=== PATIENT | male | born 1990 | race Caucasian/White ===

== ENCOUNTER 2017-10-11 19:16 | Emergency (ER) | payer SELFPAY ==
[~2017-10-11] VITALS: Ht 175.3 cm; Wt 99.8 kg
[2017-10-11 19:17] VITALS: Ht 175.3 cm; Wt 99.8 kg
[2017-10-11 21:17] VITALS: BP 128/53
== END 2017-10-11 21:17 | disposition other institution (70) ==
LOC: ED 19:16
DX: M54.5 Low back pain (principal); S00.83XA Contusion of other part of head, initial encounter; Y35.891A Legal intervention involving other specified means, law enforcement official injured, initial encounter; Y93.89 Activity, other specified; Y92.810 Car as the place of occurrence of the external cause; Y99.8 Other external cause status

== ENCOUNTER 2017-10-11 19:16 | Emergency (ER) | payer OTHER | END 2017-10-11 21:17 | disposition other institution (70) | LOC: ED 19:16 | DX: Z02.89 Encounter for other administrative examinations (principal) ==

== ENCOUNTER 2018-02-15 04:08 | Emergency (ER) | payer MEDICAID ==
[~2018-02-15] VITALS: Ht 167.6 cm; Wt 103.9 kg
[2018-02-15 04:14] VITALS: Ht 167.6 cm; Wt 103.9 kg
[2018-02-15 05:30] VITALS: BP 136/86
== END 2018-02-15 05:30 | disposition home or self-care (01) ==
LOC: ED 04:08
DX: B35.6 Tinea cruris (principal); J45.909 Unspecified asthma, uncomplicated